=== PATIENT | female | born 2005 | race Two or more races ===

== ENCOUNTER 2024-03-25 11:56 | Emergency (ER) | payer MEDICAID ==
[~2024-03-25] VITALS: Ht 167.6 cm; Wt 77.9 kg
[~2024-03-25 11:56] MED LIST: IBUP-1456 PO; NITR-87 PO; ZOFR4T PO
[2024-03-25] MEDS: KETOROLAC TROMETH 30 MG/ML 1ML VIAL IV ONE (14:00)
[2024-03-25] MEDS: AMPICILLIN & SULBACTAM SODIUM 3 GM in SODIUM CHL 0.9% 100 ML IV ONE (14:00)
[2024-03-25 14:15] VITALS: BP 136/82; PULSE 83; RESP 14; TEMP 97.6; O2SAT 98
[2024-03-25] MEDS ORDERED: IBUP1TAB5 PO (15:56)
[2024-03-25] MEDS ORDERED: AUG875T PO (15:56)
== END 2024-03-25 17:21 | disposition home or self-care (01) ==
LOC: ER 11:56
DX: S50.811A Abrasion of right forearm, initial encounter (principal); J45.909 Unspecified asthma, uncomplicated; Z79.899 Other long term (current) drug therapy; W55.01XA Bitten by cat, initial encounter; Y93.89 Activity, other specified; Y92.89 Other specified places as the place of occurrence of the external cause; Y99.8 Other external cause status
CPT/HCPCS: 73090; J1885